=== PATIENT | male | born 1985 | race Caucasian/White ===

== ENCOUNTER 2021-11-26 05:34 | Emergency (ER) | payer OTHER ==
[2021-11-26 05:59] LABS: BASOPHIL 0.4 % (0-2); EOSINOPHIL 2.1 % (0-5); HCT 46.8 % (42.0-52.0); HGB 15.8 g/dl (13.2-18.0); LYMPHOCYTE 3.3 % (15-48); MCH 31.1 pg (25.0-31.0); MCHC 33.8 g/dL (32.0-36.0); MCV 92.1 fL (78.0-100.0); MONOCYTE 4.5 % (0-12); MPV 10.9 fL (6.0-9.5); NEUTROPHIL 89.3 % (41-80); NRBC 0; PLT 143 K/uL (150-400); RBC 5.08 M/uL (4.70-6.00); RDW 12.3 % (11.5-14.0); WBC 8.4 K/uL (4.0-10.5)
[2021-11-26 06:32] LABS: BILIRUBIN NEGATIVE (NEGATIVE); BLOOD NEGATIVE Ery/uL (NEGATIVE); CLARITY CLEAR (CLEAR); COLOR YELLOW (YELLOW); GLUCOSE (U) NORMAL (NORMAL); LEUKOCYTES NEGATIVE Leu/uL (NEGATIVE); NITRITE NEGATIVE (NEGATIVE); PROTEIN NEGATIVE (NEGATIVE)
[2021-11-26 06:33] LABS: INFLUENZA A NAA NEGATIVE (NEGATIVE)
[2021-11-26 06:37] LABS: AMPHETAMINES NEGATIVE (NEGATIVE); BARBITURATES NEGATIVE (NEGATIVE); ECSTASY (MDMA) NEGATIVE (NEGATIVE); MARIJUANA (THC) POSITIVE (NEGATIVE); METHADONE NEGATIVE (NEGATIVE); OPIATES NEGATIVE (NEGATIVE); OXYCODONE NEGATIVE (NEGATIVE)
[2021-11-26 06:41] LABS: CORONAVIRUS 2019 SARS-COV-2 POSITIVE (NEGATIVE)
[2021-11-26 06:46] LABS: INR 1.04 (0.9-1.2); PROTHROMBIN TIME 13.3 SECONDS (11.9-13.9); PTT 28.9 SECONDS (24.9-34.6)
[2021-11-26] MEDS ORDERED: AZITHROMYCIN250 MG PO (06:52)
[2021-11-26] MEDS ORDERED: PREDNISONE 20MG20 MG PO (06:52)
[2021-11-26 07:01] LABS: ALBUMIN 3.6 g/dL (3.4-5.0); BILIRUBIN - TOTAL 0.2 mg/dL (0.2-1.0); BUN/CREAT RATIO (CALC) 9.7 RATIO; CREATININE 1.03 mg/dL (0.67-1.17); GLOBULIN (CALCULATION) 2.9 g/dL; POTASSIUM 3.6 mmol/L (3.5-5.1); TOTAL PROTEIN 6.5 g/dL (6.4-8.2)
== END 2021-11-26 08:04 | disposition home or self-care (01) ==
LOC: FER 05:34
PROVIDERS: Internal Medicine
DX: U07.1 COVID-19 (principal); J45.909 Unspecified asthma, uncomplicated; F17.210 Nicotine dependence, cigarettes, uncomplicated; Z28.310 Unvaccinated for COVID-19
CPT/HCPCS: 36415; 71045; 80053; 80305; 81003; 83605; 83690; 84145; 84484; 85025; 85610; 85730; 93005; J1100; J1170; J2405; J7120; U0002